=== PATIENT | female | born 1955 | race Caucasian/White ===

== ENCOUNTER → 2022-03-13 | Outpatient (CLI) | payer OTHER, SELFPAY ==
[2022-03-13 22:02] LABS: Absolute Lymphocyte Count 2.07 X10^3/uL (0.83-4.51); Absolute Neutrophil Count 5.2 X10^3/uL (2.0-7.7); Basophil# 0.05 X10^3/uL; Basophil% 0.6 % (0-1); Eosinophil# 0.13 X10^3/uL; Eosinophils% 1.6 % (0-5); Hematocrit 45.5 % (37-47); Hemoglobin 15.6 g/dL (12.0-15.0); Lymphocyte # 2.07 X10^3/ul (0.83-4.51); Lymphocyte % 25.7 % (19-41); Mean Corp Hgb Conc 34.3 g/dL (32-36); Mean Corpuscular Hgb 31.2 pg (27.0-32.0); Mean Platelet Vol. 11.2 fl (6.2-12.0); Monocyte# 0.54 X10^3/uL; Monocyte% 6.7 % (0-10); NRBC Flagged by Analyzer 0 % (0-5); Neutrophil # 5.24 X10^3/uL (2.7-7.7); Neutrophil % 65.2 % (47-70); Platelet Count 240 K/mm3 (150-450); RBC Distribution Width CV 12.2 % (11.6-14.6); RBC Distribution Width SD 40.2 fl (35.1-43.9); White Blood Count 8.1 K/mm3 (4.4-11.0)
[2022-03-13 22:27] LABS: Hemoglobin A1c 11.5 % (3.8-5.6)
[2022-03-13 23:10] LABS: ALB/GLOB Ratio 1.1 RATIO (0.9-2.4); AST(SGOT) 16 U/L (15-37); Alanine Aminotransfer ALT/SGPT 42 U/L (13-56); Albumin, Serum 3.9 g/dL (3.2-5.0); Alkaline Phosphatase 101 U/L (45-117); Anion Gap 9 (5-15); BUN 14 mg/dL (7-18); BUN/Creat Ratio 18.7 RATIO (10-20); Calcium,Total 9.3 mg/dL (8.5-10.1); Chloride 100 mmol/L (98-107); Cholesterol 249 mg/dL (200); Creatinine, Serum 0.75 mg/dL (0.55-1.02); EST Glomerular Filtration Rate 82 mL/min (>60); Est Glom Filt Rate - Afr Amer 100 mL/min (>60); Globulin 3.4 g/dL (2.2-4.2); Glucose 264 mg/dL (74-106); High Density Lipoprotein 45 mg/dL; Potassium 3.9 mmol/L (3.5-5.1); Prolactin 5.6 ng/mL; Protein, Total 7.3 g/dL (6.4-8.2); Sodium Level 137 mmol/L (136-145); T4 Free Direct 0.91 ng/dL (0.76-1.46); Thyroid Stim Hormone (TSH) 5.14 uIU/mL (0.358-3.74); Triglycerides 311 mg/dL; Very Low Density Lipoprotein 62 mg/dL (5-40)
== END | disposition home or self-care (01) ==
PROVIDERS: Visit Provider Nurse Practitioner
DX: Z00.00 Encounter for general adult medical examination without abnormal findings (principal)
CPT/HCPCS: 80053; 80061; 83036; 84146; 84439; 84443; 85025

== ENCOUNTER → 2022-05-11 | Outpatient (CLI) | payer OTHER, SELFPAY ==
[2022-05-11 22:57] LABS: Thyroid Stim Hormone (TSH) 2.42 uIU/mL (0.358-3.74)
== END | disposition home or self-care (01) ==
PROVIDERS: Visit Provider Nurse Practitioner
DX: E03.9 Hypothyroidism, unspecified (principal)
CPT/HCPCS: 84443

== ENCOUNTER → 2023-05-17 | Outpatient (CLI) | payer OTHER, SELFPAY ==
[2023-05-17 21:16] LABS: Absolute Lymphocyte Count 1.93 X10^3/uL (0.83-4.51); Absolute Neutrophil Count 4.6 X10^3/uL (2.0-7.7); Basophil# 0.04 X10^3/uL; Basophil% 0.5 % (0-1); Eosinophil# 0.12 X10^3/uL; Eosinophils% 1.6 % (0-5); Hematocrit 46.2 % (37-47); Lymphocyte # 1.93 X10^3/ul (0.83-4.51); Lymphocyte % 26.5 % (19-41); Mean Corp Hgb Conc 32.5 g/dL (32-36); Mean Corpuscular Hgb 30.2 pg (27.0-32.0); Mean Platelet Vol. 11.9 fl (6.2-12.0); Monocyte# 0.56 X10^3/uL; Monocyte% 7.7 % (0-10); NRBC Flagged by Analyzer 0 % (0-5); Neutrophil % 63.3 % (47-70); Platelet Count 239 K/mm3 (150-450); RBC Distribution Width SD 41.3 fl (35.1-43.9); Red Blood Count 4.97 M/mm3 (4.2-5.4); White Blood Count 7.3 K/mm3 (4.4-11.0)
--- OUTSIDE RECORDS SUMMARY | 2023-05-17 21:19 | XMS RPT_ITS | CCD ---
Author Name Unknown Address [facility] [place] [address] Organization [facility] Care Team Providers Care Talent Engineer Name Role Phone Raad Wagner Primary Care Provider Raad Wagner Primary Care Unavailable PROVIDER, UNKNOWN Referring Unavailable Karina Childs Attending Unavailable MONTRELL WAGNER Primary Care Unavailable MONTRELL WAGNER Primary Care Unavailable ROSITA LENZ CNP Attending Unavailable Mikie Tay MD Unavailable Mary Ellen Ashton MD Unavailable Ja RATING EXAMINER.Renita HUFF Primary Care Provide r RENITA COULTER Primary Care Unavailable SELF Referring Unavailable PROVIDER, UNKNOWN Referring Unavailable RENITA COULTER Primary Care Unavailable BECK FRAGOSO Attending Unavailable RENITA COULTER Primary Care Unavailable Allergies Allergy Classification Reported Allergen(s) Allergy Type Date of Onset Reaction(s) Facility (13 sources) Contrast media; Translations: [CONTRAST DYE] Drug Allergy 3 Hives [facility] (13 sources) Latex; Translations: [LATEX] Drug Allergy 3 Swelling [facility] (13 sources) Shellfish; Translations: [SHELLFISH] Food Allergy 3 Rash [facility] (4 sources) Seasonal allergy; Translations: [SEASONAL ALLERGIES] Allergy to substance 0 Other: See Comments [facility] (3 sources) Codeine; Translations: [CODEINE] Drug Allergy 1 Other: See Comments [facility] Medications Current Medications Medication Drug Class(es) Dates Sig (Normalized) Sig (Original) predniSONE 10 mg oral tablet (1 source) Start: 04-06-2023 End: 04-11-2023 take 3 tablets by mouth once daily predniSONE (DELTASONE) 10 mg tablet Indications: Acute cough Take 3 tablets by mouth once daily for 5 days. 15 tablet 0 04/06/2023 04/11/2023 Active Completed/Discontinued Medications Medication Drug Class(es) Dates Sig (Normalized) Sig (Original) ascorbic acid 500 mg oral tablet (2 sources) Vitamin C take 2 tablets by mo uth once daily ascorbic acid, vitamin C, (VITAMIN C) 500 mg tablet Take 1,000 mg by mouth once daily. 0 Active Problems Active Problems Problem Classification Problem Date Documented Date Episodic/Chronic Allergic reactions (4 sources) Latex allergy status; Translations: [Allergy to seafood] Onset: 01-24-2022 Episodic Cardiac and circulatory congenital anomalies (1 source) Patent ductus arteriosus; Translations: [PDA (patent ductus arteriosus)] Chronic Diabetes mellitus with complications (1 source) Type 2 diabetes mellitus with hyperglycemia; Translations: [Type 2 diabetes mellitus with hyperglycemia, without long-term current use of insulin (HCC)] Onset: 03-12-2020 Chronic Diabetes mellitus without complication (4 sources) Type 2 diabetes mellitus without complication; Translations: [Type 2 diabetes mellitus without complications] Onset: 03-12-2020 Chronic E Codes: Cut/pierceb (2 sources) Contact with knife, initial encounter; Translations: [Contact with knife, initial encounter] Onset: 01-24-2022 Episodic E Codes: Unspecified (2 sources) Activity, cooking and baking; Translations: [Activity, cooking and baking] Onset: 01-24-2022 Episodic Esophageal disorders (11 sources) Gastroesophageal reflux disease; Translations: [Gastro-esophageal reflux disease without esophagitis] 10-30-2012 Chronic Open wounds of extremities (2 sources) Laceration without foreign body of left hand, initial encounter; Translations: [Laceration without foreign body of left hand, init encntr] Onset: 01-24-2022 Episodic Other and unspecified benign neoplasm (2 sources) Osteochondroma of scapula; Translations: [Osteochondroma of left scapula] Episodic Other bone disease and musculoskeletal deformities (1 source) Disorder of bone; Translations: [Bone lesion] Episodic Other circulatory disease (1 source) Elevated blood-pressure reading without diagnosis of hypertension; Translations: [Elevated BP without diagnosis of hypertension] Episodic Other lower respiratory disease (1 source) Cough; Translations: [Acute cough] 04-06-2023 Episodic Other nutritional; endocrine; and metabolic disorders (1 source) Obesity; Translations: [Obesity, unspecified classification, unspecified obesity type, unspecified whether serious comorbidity present] Chronic Other nutritional; endocrine; and metabolic disorders (1 source) Severe obesity; Translations: [Morbid (severe) obesity due to excess calories] Onset: 03-12-2020 03-12-2020 Chronic Other skin disorders (3 sources) Mass of shoulder region; Translations: [Shoulder mass] Episodic Other upper respiratory disease (1 source) Seasonal allergy; Translations: [Seasonal allergies] Chronic Residual codes; unclassified (2 sources) Obstructive sleep apnea syndrome; Translations: [Obstructive sleep apnea (adult) (pediatric)] Onset: 03-12-2020 03-12-2020 Chronic Screening and history of mental health and substance abuse codes (1 source) Ex-smoker; Translations: [Former smoker] Episodic Thyroid disorders (1 source) Thyroid nodule; Translations: [Nontoxic single thyroid nodule] Onset: 03-12-2020 03-12-2020 Chronic Unclassified (1 source) Patient encounter status; Translations: [Pre-op testing] Unclassified (1 source) Acute cough; Translations: [Acute cough] Onset: 04-11-2023 Past or Other Problems Problem Classification Problem Date Documented Da te Episodic/Chronic Other connective tissue disease (1 source) Facial weakness; Translations: [Facial droop] Onset: 10-10-2022 Episodic Other nervous system disorders (1 source) Lenz's palsy; Translations: [Lenz's palsy] Onset: 10-10-2022 Episodic Results Test Name Value Interpretation Reference Range Facil ity Vital Signs Date Time Vital Sign Value Performing Clinician Surjit marie 04-06-2023 17:27-0500 Body height 170.2 cm Rosita Caro APRN.CNP Work Phone: [facility] 04-06-2023 17:27-0500 Body temperature 97.5 [degF] Rosita Caro APRN.CNP Work Phone: [facility] 04-06-2023 17:27-0500 Body weight 106.5 kg Rosita Caro APRN.CNP Work Phone: [facility] 12-08-2023 17:27-0500 Diastolic blood pressure 83 mm[Hg] Rosita Caro RATING EXAMINER.SUPERVISING CHEF Work Phone: [facility] 04-06-2023 17:27-0500 Heart rate 92 /min Rosita Ball RATING EXAMINER.SUPERVISING CHEF Work Phone: [facility] 04-06-2023 17:27-0500 Respiratory rate 18 /min Rosita Ball RATING EXAMINER.SUPERVISING CHEF Work Phone: [facility] 04-06-2023 17:27-0500 SaO2% (BldA) [Mass fraction] 98 % Rosita Ball RATING EXAMINER.SUPERVISING CHEF Work Phone: [facility] 04-06-2023 17:27-0500 Systolic blood pressure 149 mm[Hg] Rositabillie Caro RATING EXAMINER.SUPERVISING CHEF Work Phone: [facility] 03-05-2020 10:46-0500 Body Temperature 98.4 [degF] Pst 1 [facility] 03-05-2020 10:46-0500 Body weight 122.47 kg Pst 1 [facility] 03-05-2020 10:46-0500 BP Diastolic 93 mm[Hg] Pst 1 [facility] 03-05-2020 10:46-0500 BP Systolic 160 mm[Hg] Pst 1 [facility] 03-05-2020 10:46-0500 Height 170.2 cm Pst 1 [facility] 03-05-2020 10:46-0500 Pulse (Heart Rate) 82 /min Pst 1 [facility] 03-05-2020 10:46-0500 Pulse Oximetry 97 % Pst 1 [facility] 03-05-2020 10:46-0500 Respiratory Rate 19 /min Pst 1 [facility] 02-18-2020 09:17-0400 Body weight 122.47 kg Rudi Hernandez [facility] 02-18-2020 09:17-0400 Height 170.2 cm Ruditarah Hernandez [facility] 02-18-2020 09:17-0400 Respiratory Rate 18 /min Rudi Hernandez [facility] 01-21-2020 08:42-0400 Body weight 122.47 kg Rudi Hernandez [facility] 01-21-2020 08:42-0400 Height 170.2 cm Ruditarah Hernandez [facility] 01-21-2020 08:42-0400 Respiratory Rate 20 /min Rudi Hernandez [facility] Encounters Encounter Date Encounter Type Care Provider Facility Start: 04-11-2023 ambulatory UNKNOWN PROVIDER Facili ty:[facility] Start: 04-06-2023 End: 04-06-2023 ambulatory RENITA COULTER Facility:[facility] Start: 04-06-2023 End: 04-06-2023 Office outpatient new 20 minutes Rosita Caro RATING EXAMINER.SUPERVISING CHEF Work Phone: [facility] Procedures Date Procedure Procedure Detail Performing Clinician Start: 03-05-2020 Antibody screen Plan of Treatment Date Care Activity Detail Author Start: 12-29-2022 Influenza vaccination Influenza Vacc ine (#1) [facility] Start: 08-12-2022 DIABETES SCREEN DIABETES SCREEN [facility] Start: 04-30-2022 Advance Directive Discussion Advance Directive Discussion [facility] Start: 04-30-2022 Depression Assessment Depression Ass essment [facility] Start: 08-24-2021 Screening for malign ant neoplasm of breast Breast cancer screen [place] Start: 2021 Bone Density Screening Bone Density Screening [facility] Start: 03-05-2020 End: 03-05-2021 CONFIRM BLOOD TYPE CONFIRM BLOOD TYPE Blood Bank Routine Pre-op testing Expected: 03/05/2020, Expires: 03/05/2021 [facility] Payers Date Payer Category Payer Private Health Insurance [facility] CHOICE PLUS [id number] 2015-Present HMO [id number] 2015 Unknown [id number] 2008 Private Health Insurance 1955 Unknown [id number] 1955 Unknown [id number] 1955 Unknown [id number] Social History Date Type Detail Facility Tobacco smoking stat us NHIS Unknown if ever smoked [employer] Start: 1955 [facility]igned [facility] Start: 01-21-2020 End: 04-06-2023 Tobacco smoking status NHIS Former smoker [facility] End: 03-05-2015 History of tobacco use Cigarette Smoker [facility] Start: 01-21-2020 End: 04-06-2023 Tobacco use and exposure [facility] Start: 01-21-2020 End: 04-06-2023 Alcohol intake Current non-drinker of alcohol (finding) [facility] Exposure to SARS-CoV -2 (event) Not sure [facility] End: 03-05-2015 History of tobacco use Current smoker [facility] Start: 03-05-2020 End: 10-11-2022 Cigarettes smoked current (pack per day) - Reported [facility] Start: 03-05-2020 Tobacco Comment 1 pack weekly [facility] Start: 10-11-2022 End: 04-06-2023 Tobacco use panel [facility] PHQ2 Score 0 [facility] Start: 04-06-2023 Tobacco Comment 1 pack weekly [facility] Medical Equipment Procedure Code Equipment Code Equipment Origin al Text Equipment Identifier Dates USE TO TEST TWIC E DAILY Start: 12-17-2019 Clinical Notes 01-21-2020 to 04-11-2023 Rosita Caro APRN.SUPERVISING CHEF - 04/06/2023 5:58 PM ESTPatient Instructions Note Date & Type Note Facility 04-11-2023 Note HNO ID: [id number] Author: Aline Grey RT(R) Service: Radiology Author Type: Assistant Media Planner Type: Progress Notes Filed: 04/11/2023 4:46 PM Note Text: Radiology Service Progress Note PATIENT NAME: Norm Donovan DATE OF SERVICE: April 11, 2023 TIME: 4:46 PM PATIENT IDENTITY VERIFICATION COMPLETED USING TWO (2) IDENTIFIERS: Name and Date of confirmed by patient verbally. FALL SCREENING: Has the patient had 2 falls in the last year or 1 fall with injury or currently using an Ambulatory Assistive Device (Walker, Cane, Wheelchair, Crutches, etc.)? No PATIENT GENDER DATA: Female. status: : No status: NO. PATIENT RELEVANT IMPLANT DATA REVIEWED: Not Applicable RADIOLOGY DEPARTMENT: General X-ray: Exam(s) Completed: Chest X-Ray PERIPHERAL IV DATA: Not applicable SIGNED BY: Aline Grey RT(R) April 11, 2023 4:46 PM [facility] 04-06-2023 Note HNO ID: [id number] Author: Rosita Caro APRN.SUPERVISING CHEF Service: ? Author Type: Nurse Practitioner Type: Progress Notes Filed: 04/06/2023 6:08 PM Note Text: This note was created using NoteWriter. Subjective Norm Donovan is a 67 year old female. HPI by patient: Norm is a 67 year old presenting to the office with the complaint of URI Started approximately around Mar 20. Was visitn her mother out of town who was dying from PNA. Unknown type of PNA and mother also has CHF Associated symptoms include cough, congestion Denies any other concerns Covid Immunization Dates Overdue - Covid-19 Vaccine (1) Never done No completion, postpone, frequency change, or communication history exists for this topic. Sick contacts: yes Smoking history/second hand smoke: no OTC decongestant cough medicine No antibiotic use in the last 60 days. ALLERGIES Codeine Other: See Comments Comment:Anxious Contrast Dye Hives Latex Swelling Seasonal Allergies Other: See Comments Comment:Sinus allergies Shellfish Rash Family History Reviewed Including Cardiac Diseases, Psychiatric Diseases, AND Substance Abuse Problem: Dementia Relation: Father Age of Onset: (Not Specified) Problem: other (Hypertension macular degeneration) Relation: Brother Age of Onset: (Not Specified) Social History Tobacco Use Smoking status: Former Packs/day: 0.05 Years: 9.00 Additional pack years: 0.00 Total pack years: 0.45 Types: Cigarettes Quit date: 03/05/2015 Years since quittin.0 Smokeless tobacco: Never Tobacco comments: 1 pack weekly Vaping Use Vaping Use: Never used Alcohol use: No Drug use: No Review of Systems Constitutional: Negative for chills and fever. HENT: Positive for congestion, postnasal drip and rhinorrhea. Negative for ear pain and sore throat. Respiratory: Positive for cough and shortness of breath. Negative for wheezing. Cardiovascular: Negative for chest pain. Allergic/Immunologic: Negative for immunocompromised state. Hematological: Negative for adenopathy. Objective BP 149/83 (BP Site: Right Arm, BP Position: Sitting, BP Cuff Size: Large Adult) Pulse 92 Temp 36.4 ?C (97.5 ?F) (Right Tympanic) Resp 18 Ht 170.2 cm (5' 7 ) Wt 106.5 kg (234 lb 12.8 oz) LMP 09/28/2014 SpO2 98% BMI 36.77 kg/m? Physical Exam Vitals and nursing note reviewed. HENT: Right Ear: Tympanic membrane and ear canal normal. Left Ear: Tympanic membrane and ear canal normal. Nose: Congestion and rhinorrhea present. Mouth/Throat: Pharynx: Uvula midline. Posterior oropharyngeal erythema present. No oropharyngeal exudate. Cardiovascular: Rate and Rhythm: Normal rate and regular rhythm. Heart sounds: Normal heart sounds. Pulmonary: Effort: Pulmonary effort is normal. No respiratory distress. Breath sounds: Normal breath sounds. No stridor. No wheezing, rhonchi or rales. Chest: Chest wall: No tenderness. Lymphadenopathy: Cervical: No cervical adenopathy. Skin: General: Skin is warm and dry. Neurological: Mental Status: She is alert and oriented to person, place, and time. Assessment and Plan ASSESSMENT/PLAN: 1. Acute cough - ICD9: 786.2, ICD10: R05.1 - COVID AND INFLUENZA A/B AND RSV NAAT, ROUTINE - PREDNISONE 10 MG TABLET - OXYMETAZOLINE 0.05 % NASAL SPRAY - XR CHEST 2V FRONTAL/LAT Rosita Caro APRN.DARIA Medical Decision Making: Problems: Moderate: New problem with uncertain prognosis Data: Unique test(s) ordered: 3+ Risk: Moderate: Drug management Medical Decision Making Level: 4 - Moderate [facility] 04-06-2023 History of Present illness Narrative This note was created using NoteWriter. Subjective Norm Donovan is a 67 year old female. HPI by patient: Norm is a 67 year old presenting to the office with the complaint of URI Started approximately around Mar 20. Was visitn her mother out of town who was dying from PNA. Unknown type of PNA and mother also has CHF Associated symptoms include cough, congestion Denies any other concerns Covid Immunization Dates Overdue - Covid-19 Vaccine (1) Never done No completion, postpone, frequency change, or communication history exists for this topic. Sick contacts: yes Smoking history/second hand smoke: no OTC decongestant cough medicine No antibiotic use in the last 60 days. ALLERGIES Codeine Other: See Comments Comment:Anxious Contrast Dye Hives Latex Swelling Seasonal Allergies Other: See Comments Comment:Sinus allergies Shellfish Rash Family History Reviewed Including Cardiac Diseases, Psychiatric Diseases, & Substance Abuse Problem: Dementia Relation: Father Age of Onset: (Not Specified) Problem: other (Hypertension macular degeneration) Relation: Brother Age of Onset: (Not Specified) Social History Tobacco Use Smoking status: Former Packs/day: 0.05 Years: 9.00 Additional pack years: 0.00 Total pack years: 0.45 Types: Cigarettes Quit date: 03/05/2015 Years since quittin.0 Smokeless tobacco: Never Tobacco comments: 1 pack weekly Vaping Use Vaping Use: Never used Alcohol use: No Drug use: No Review of Systems Constitutional: Negative for chills and fever. HENT: Positive for congestion, postnasal drip and rhinorrhea. Negative for ear pain and sore throat. Respiratory: Positive for cough and shortness of breath. Negative for wheezing. Cardiovascular: Negative for chest pain. Allergic/Immunologic: Negative for immunocompromised state. Hematological: Negative for adenopathy. Objective BP 149/83 (BP Site: Right Arm, BP Position: Sitting, BP Cuff Size: Large Adult) Pulse 92 Temp 36.4 C (97.5 F) (Right Tympanic) Resp 18 Ht 170.2 cm (5' 7 ) Wt 106.5 kg (234 lb 12.8 oz) LMP 09/28/2014 SpO2 98% BMI 36.77 kg/m Physical Exam Vitals and nursing note reviewed. HENT: Right Ear: Tympanic membrane and ear canal normal. Left Ear: Tympanic membrane and ear canal normal. Nose: Congestion and rhinorrhea present. Mouth/Throat: Pharynx: Uvula midline. Posterior oropharyngeal erythema present. No oropharyngeal exudate. Cardiovascular: Rate and Rhythm: Normal rate and regular rhythm. Heart sounds: Normal heart sounds. Pulmonary: Effort: Pulmonary effort is normal. No respiratory distress. Breath sounds: Normal breath sounds. No stridor. No wheezing, rhonchi or rales. Chest: Chest wall: No tenderness. Lymphadenopathy: Cervical: No cervical adenopathy. Skin: General: Skin is warm and dry. Neurological: Mental Status: She is alert and oriented to person, place, and time. Assessment and Plan ASSESSMENT/PLAN: 1. Acute cough - ICD9: 786.2, ICD10: R05.1 - COVID & INFLUENZA A/B & RSV NAAT, ROUTINE - PREDNISONE 10 MG TABLET - OXYMETAZOLINE 0.05 % NASAL SPRAY - XR CHEST 2V FRONTAL/LAT Rosita Caro APRN.CNP Medical Decision Making: Problems: Moderate: New problem with uncertain prognosis Data: Unique test(s) ordered: 3+ Risk: Moderate: Drug management Medical Decision Making Level: 4 - Moderate documented in this encounter [facility] 04-06-2023 Instructions Rosita Caro APRN.CNP - 04/06/2023 5:58 PM EST UPPER RESPIRATORY INFECTIONS Most cases are caused by viruses and most cases are mild, temporary, and harmless. Symptoms can last 2 to 3 weeks and can include: nasal congestion, sore throat, coughing, muscles aches, headaches, nausea, diarrhea, fatigue and fever. 1. Drink plenty of fluids. 2. Get lots of rest. 3. Avoid dehydrants such as caffeine and alcohol. 4. Nasal saline is an effective decongestant and be used frequently throughout the day. 5. To loosen phlegm and help coughing, drink plenty of fluids and using a humidifier. 6. For sore throats, it is ok to use cough drops, throat sprays, or gargling warm salt water. 7. Always cover your mouth when you cough or sneeze, and wash your hands frequently. Avoid crowded areas like shopping centers, movies while you are sick so you don't apple picker a different virus, or infect others. 8. Avoid exposure to cigarettes or fumes. 9. Avoid irritants such as potpourri, dust, perfumes, scented candles and scented sprays 10. Air conditioning is an effective allergen and irritant avoidance strategy in the spring, summer and fall. 11. Honey is an effective cough suppressant. Try one tsp two to three times per day. 12. Mucinex every 12 hours with a full 10-12 ounces of water The below information is from prescribersletter.GetFeedback: Antibiotics Will rarely help an upper respiratory infections. Antibiotics lead to more resistant infections that are harder to treat. There is little to no benefit to taking antibiotics for most acute upper respiratory tract infections. documented in this encounter [facility] 07-20-2020 Note HNO ID: [id number] Author: Victor Hugo Walter Service: ? Author Type: Physician Type: Progress Notes Filed: 07/20/2020 11:03 AM Note Text: Norm Donovan is a 64 year old White female who presents with complaints of Post Op HPI: She was in for virtual visit at her request today for postoperative check. She is doing well. She is happy with her results. Operative findings reviewed with her. She is having no problems but at the end of the call noted some equivocal swelling above her knee which she feels is related to her increased walking. I explained to her that there is slight risk of DVT after surgery and that we probably need to have this checked out. She does not want to come back to [place] for this and would prefer to stay local. She will contact her PCP. She understands the concerns about risks of postop DVT. She does not feel it is anything more than just some swelling involving her knee related to her walking however. We discussed the need for follow-up of her thyroid function in 2 to 3 months as well. This note was partially generated using [employer] voice recognition system. PAST MEDICAL HISTORY Diagnosis Date - Diabetes (HCC) diet controlled - GERD (gastroesophageal reflux disease) - Obesity - [place] on CPAP - Osteochondroma of left scapula - PDA (patent ductus arteriosus) surgery at age [age] - Seasonal allergies - Thyroid mass - Urinary incontinence PAST SURGICAL HISTORY Procedure Laterality Date - ; TOTAL THYROID LOBECTOMY W/WO [facility] 07/07/2020 Dr. Walter - CHOLECYSTECTOMY HX 2003 - EXCIS BARTHOLIN GLAND/CYST - HYSTERECTOMY HX 1998 - IANDD BARTHOLIN'S ABSCESS - PAST SURGICAL HISTORY OF age 45 years old patent ductus ovale Social History Tobacco Use - Smoking status: Former Smoker Packs/day: 0.05 Years: 9.00 Pack years: 0.45 Types: Cigarettes Quit date: 03/05/2015 Years since quittin.3 - Smokeless tobacco: Never Used - Tobacco comment: 1 pack weekly Vaping Use - Vaping Use: Never used Substance Use Topics - Alcohol use: No - Drug use: No FAMILY HISTORY Problem Relation Age of Onset - Dementia Father - other (Hypertension macular degeneration) Brother ALLERGIES Allergen Reactions - Codeine Other: See Comments Anxious - Contrast Dye Hives - Latex Swelling - Seasonal Allergies Other: See Comments Sinus allergies - Shellfish Rash Current Outpatient Medications Medication Sig - ondansetron (ZOFRAN) 4 mg tablet Take 1 tablet by mouth every 8 hours as needed. - ascorbic acid, vitamin C, (VITAMIN C) 500 mg tablet Take 1,000 mg by mouth once daily. - fluticasone-vilanterol (BREO ELLIPTA) 200-25 mcg/dose inhaler Inhale 1 Inhalation as instructed as needed. - Lactobacillus acidophilus (FLORAJEN ORAL) Take by mouth once daily. - omeprazole sodium bicarbonate (ZEGERID) 40-1.1 mg-gram per capsule Take 1 capsule by mouth daily before breakfast. - psyllium Husk 0.52 gram capsule Take 1.04 g by mouth once daily. - cholecalciferol (VITAMIN D) 1,000 unit tab tablet Take 4,000 Units by mouth once daily. - ibuprofen (MOTRIN) 600 mg tablet Take 1 tablet by mouth every 6 hours as needed for Pain. No current facility-administered medications for this visit. REVIEW OF SYSTEMS: Review of Systems Constitutional: Negative for chills, fever and weight loss. HENT: Negative for congestion, ear pain, hearing loss, sinus pain and sore throat. Eyes: Negative for blurred vision, double vision and pain. Respiratory: Negative for cough, shortness of breath and wheezing. Cardiovascular: Negative for chest pain, palpitations and leg swelling. Gastrointestinal: Negative for abdominal pain, blood in stool, constipation, diarrhea, heartburn, nausea and vomiting. Genitourinary: Negative for dysuria, frequency and urgency. Musculoskeletal: Negative for back pain, joint pain and neck pain. Skin: Negative for itching and rash. Neurological: Negative for dizziness, weakness and headaches. Endo/Heme/Allergies: Negative for environmental allergies. Does not bruise/bleed easily. Psychiatric/Behavioral: Negative for depression and memory loss. The patient is not nervous/anxious and does not have insomnia. PHYSICAL EXAM: Ht 5' 7 (1.70m) Wt 260 lb (117.9kg) LMP 09/28/2014 BMI 40.71 kg/(m2). General Evaluation: Deferred because of virtual visit today. Procedures: No notes on file Diagnosis: Postoperative visit (primary encounter diagnosis) Plan Assessment: She is status post left thyroid lobectomy for a 2.8 cm thyroid mass with indeterminate cytology but final pathology report consistent with a benign hyperplastic nodule measuring 3.0 cm. She has indeterminant knee swelling by her report related to recent walking, but she understands the risks and concerns related to postoperative DVT. She feels that this is more related to the area of her knee joint from increased walking recently and not an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
[2023-05-17 21:41] LABS: ALB/GLOB Ratio 1.1 RATIO (0.9-2.4); AST(SGOT) 16 U/L (15-37); Alanine Aminotransfer ALT/SGPT 35 U/L (13-56); Albumin, Serum 3.8 g/dL (3.2-5.0); Alkaline Phosphatase 94 U/L (45-117); Anion Gap 7 (5-15); BUN 11 mg/dL (7-18); BUN/Creat Ratio 16.5 RATIO (10-20); CRP, High Sensitivity Cardiac 7.15 mg/L; Calcium,Total 9.1 mg/dL (8.5-10.1); Chloride 103 mmol/L (98-107); Cholesterol 250 mg/dL (200); Creatinine, Serum 0.67 mg/dL (0.55-1.02); EST Glomerular Filtration Rate 94 mL/min (>60); Est Glom Filt Rate - Afr Amer 114 mL/min (>60); Globulin 3.5 g/dL (2.2-4.2); Glucose 276 mg/dL (74-106); High Density Lipoprotein 48 mg/dL; Protein, Total 7.3 g/dL (6.4-8.2); Sodium Level 137 mmol/L (136-145); Thyroid Stim Hormone (TSH) 6.85 uIU/mL (0.358-3.74); Triglycerides 441 mg/dL
[2023-05-17 21:52] LABS: Hemoglobin A1c 12.2 % (3.8-5.6)
[2023-05-18 07:44] LABS: Troponin-I HS 13 pg/mL (3.0-54.0)
== END | disposition home or self-care (01) ==
PROVIDERS: PCP Nurse Practitioner; Visit Provider Nurse Practitioner
DX: J45.909 Unspecified asthma, uncomplicated (principal); E11.65 Type 2 diabetes mellitus with hyperglycemia; E03.9 Hypothyroidism, unspecified; R63.4 Abnormal weight loss; R00.2 Palpitations
CPT/HCPCS: 80053; 80061; 83036; 84443; 84484; 85025; 86141

== ENCOUNTER → 2023-11-14 | Outpatient (CLI) | payer OTHER, SELFPAY ==
[2023-11-14 22:24] LABS: Absolute Lymphocyte Count 2.21 X10^3/uL (0.83-4.51); Absolute Neutrophil Count 5.1 X10^3/uL (2.0-7.7); Basophil# 0.06 X10^3/uL; Basophil% 0.7 % (0-1); Eosinophil# 0.21 X10^3/uL; Eosinophils% 2.5 % (0-5); Hematocrit 43.9 % (37-47); Hemoglobin 14.8 g/dL (12.0-15.0); Lymphocyte # 2.21 X10^3/ul (0.83-4.51); Lymphocyte % 26.4 % (19-41); Mean Corp Hgb Conc 33.7 g/dL (32-36); Mean Platelet Vol. 10.8 fl (6.2-12.0); Monocyte# 0.72 X10^3/uL; Monocyte% 8.6 % (0-10); NRBC Flagged by Analyzer 0 % (0-5); Neutrophil # 5.14 X10^3/uL (2.7-7.7); Neutrophil % 61.4 % (47-70); Platelet Count 258 K/mm3 (150-450); RBC Distribution Width CV 12.4 % (11.6-14.6); RBC Distribution Width SD 40.3 fl (35.1-43.9); Red Blood Count 4.93 M/mm3 (4.2-5.4); White Blood Count 8.4 K/mm3 (4.4-11.0)
[2023-11-14 22:44] LABS: AST(SGOT) 19 U/L (15-37); Alanine Aminotransfer ALT/SGPT 25 U/L (13-56); Albumin, Serum 3.8 g/dL (3.2-5.0); Alkaline Phosphatase 93 U/L (45-117); Anion Gap 7 (5-15); BUN 13 mg/dL (7-18); BUN/Creat Ratio 18.6 RATIO (10-20); Chloride 105 mmol/L (98-107); Cholesterol 219 mg/dL (200); EST Glomerular Filtration Rate 89 mL/min (>60); Est Glom Filt Rate - Afr Amer 107 mL/min (>60); Globulin 3.7 g/dL (2.2-4.2); Glucose 180 mg/dL (74-106); High Density Lipoprotein 50 mg/dL; Potassium 4.1 mmol/L (3.5-5.1); Protein, Total 7.5 g/dL (6.4-8.2); Sodium Level 140 mmol/L (136-145); Thyroid Stim Hormone (TSH) 2.54 uIU/mL (0.358-3.74); Triglycerides 202 mg/dL; Very Low Density Lipoprotein 40 mg/dL (5-40)
[2023-11-14 22:52] LABS: Hemoglobin A1c 9.5 % (3.8-5.6)
== END | disposition home or self-care (01) ==
PROVIDERS: PCP Nurse Practitioner; Referring Provider Nurse Practitioner; Visit Provider Nurse Practitioner
DX: Z00.00 Encounter for general adult medical examination without abnormal findings (principal)
CPT/HCPCS: 80053; 80061; 83036; 84443; 85025